=== PATIENT | male | born 1970 | race Caucasian/White ===

== ENCOUNTER → 2017-09-07 | Outpatient (CLI) | payer OTHER ==
[~2017-09-07] VITALS: Ht 180.3 cm; Wt 88.5 kg
[~2017-09-07] MED LIST: MULTI-VITAMIN1 EAC4 PO; PRILOSEC20 MG PO; ZANTAC150 MG PO
== END | disposition home or self-care (01) ==
LOC: AMB 08:30
PROC: 0DB38ZX Excision of Lower Esophagus, Via Natural or Artificial Opening Endoscopic, Diagnostic (ICD-10-PCS; principal; 2017-09-07)
DX: K21.9 Gastro-esophageal reflux disease without esophagitis (principal); K12.2 Cellulitis and abscess of mouth; Z80.1 Family history of malignant neoplasm of trachea, bronchus and lung; E78.00 Pure hypercholesterolemia, unspecified; F17.200 Nicotine dependence, unspecified, uncomplicated
CPT/HCPCS: 88305